=== PATIENT | male | born 1980 | race Hispanic/Latino ===

== ENCOUNTER 2019-10-15 09:19 | Emergency (ER) | payer OTHER, SELFPAY | END 2019-10-15 14:21 | disposition home or self-care (01) | LOC: EDH 09:19 | DX: U07.1 COVID-19 (principal); J12.89 Other viral pneumonia; Z72.0 Tobacco use | CPT/HCPCS: 36415; 71045; 80053; 81001; 82550; 82728; 83605; 83874; 84145; 84484; 85025; 85378; 85610; 85730; 87040 ×2; 87088; 87804 ×2; 93005; 99285; U0003 ==